=== PATIENT | female | born 1965 | race Caucasian/White ===

== ENCOUNTER 2025-01-27 09:14 | Emergency (ER) | payer MEDICAID ==
[~2025-01-27] VITALS: Ht 170.2 cm; Wt 103.5 kg
[2025-01-27 09:25] VITALS: BP 131/79; PULSE 67; RESP 18; TEMP 97.6; O2SAT 98
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
== END 2025-01-27 11:34 | disposition home or self-care (01) ==
LOC: ER 09:16
DX: S13.4XXA Sprain of ligaments of cervical spine, initial encounter (principal); M79.7 Fibromyalgia; G89.29 Other chronic pain; Z88.2 Allergy status to sulfonamides; Z60.2 Problems related to living alone; Z88.0 Allergy status to penicillin; X58.XXXA Exposure to other specified factors, initial encounter; Y93.89 Activity, other specified; Y92.89 Other specified places as the place of occurrence of the external cause; Y99.8 Other external cause status
CPT/HCPCS: 70450; 72125; 99284